=== PATIENT | female | born 1995 | race Caucasian/White ===

== ENCOUNTER 2021-07-17 19:47 | Emergency (ER) | payer OTHER, MEDICAID ==
[~2021-07-17] VITALS: Ht 167.6 cm; Wt 81.6 kg
[2021-07-17 23:04] VITALS: BP 104/73
[2021-07-18] MEDS ORDERED: PERCOT PO (00:49)
== END 2021-07-18 01:11 | disposition home or self-care (01) ==
LOC: ER 19:47
DX: S16.1XXA Strain of muscle, fascia and tendon at neck level, initial encounter (principal); S46.912A Strain of unspecified muscle, fascia and tendon at shoulder and upper arm level, left arm, initial encounter; V43.52XA Car driver injured in collision with other type car in traffic accident, initial encounter; Y93.89 Activity, other specified; Y92.488 Other paved roadways as the place of occurrence of the external cause; Y99.8 Other external cause status
CPT/HCPCS: 70450; 71045; 72125